=== PATIENT | male | born 1985 | race Hispanic/Latino ===

== ENCOUNTER 2019-12-29 03:01 | Emergency (ER) | payer SELFPAY ==
[~2019-12-29] VITALS: Ht 172.7 cm; Wt 111.1 kg
--- NOTE | 2019-12-29 03:37 | Emergency Department Note ---
History of Present Illnes History of Present Illness Chief Complaint: General Medicine Complaints History of Present Illness This is a 34 year old male, with history of hypothyroidism and NIDDM, who presents with a four-day history of nasal congestion, sneezing, and watery eyes. He has been taking Zyrtec, without relief of her symptoms. He denies any fever, productive cough, chest tightness or heaviness. Patient states that he awoke this morning, and felt he was unable to breathe, due to his significant nasal congestion. He did take a warm shower, which provided temporary relief. Patient states that he has had seasonal allergies in the past, but this season seems to be the worst. Historian: Patient Arrival Mode: Car Transport Pilot Required: No Onset (how long ago): day(s) (4) Location: nose Quality: congestion/stuffiness Radiation: Reports non-radiation; Denies neck Severity: severe Onset quality: gradual Duration (how long): day(s) (4) Timing of current episode: constant Progression: worsening Chronicity: new Context: Denies recent illness, Denies recent travel Relieving factors: none Exacerbating factors: none Associated symptoms: Reports denies other symptoms; Denies chest pain, Denies cough, Denies fever/chills, Denies headaches, Denies nausea/vomiting, Denies rash Treatments prior to arrival: none Past Medical/Family History Physician Review I have reviewed the patient's past medical and family history. Any updates have been documented here. Past Medical History Recent Fever: No Clinical Suspicion of Infectio: No New/Unexplained Change in Ment: No Past Medical History: Diabetes (NIDDM), Hypothyroidism Other Surgery: THYROID Social History Smoking Cessation: Never Smoker Alcohol Use: None Any Illegal Drug Use: No TB Exposure/Symptoms: No Physically hurt or threatened: No Family History Family history of heart diseas: No Other Last Tetanus: unsure Any Pre-Existing Lines (PICC,: No Is patient up to date on immun: No Review of Systems Review of Systems Constitutional: Denies chills, Denies fever EENTM: Reports no symptoms, Reports nose congestion; Denies throat pain Cardiovascular: Denies chest pain, Denies palpitations Respiratory: Denies cough, Denies dyspnea Gastrointestinal: Denies nausea, Denies vomiting Genitourinary: Reports no symptoms Musculoskeletal: Denies back pain, Denies neck pain Integumentary: Denies change in color, Denies rash Neurological: Denies headache, Denies tingling Psychological: Denies anxiety, Denies depressed Review of other systems: All other systems negative Physical Exam Related Data Allergies: Coded Allergies: No Known Allergies (Unverified , 12/29/19) Vital signs reviewed: Yes Physical Exam CONSTITUTIONAL Constitutional: Present well-developed, Present well-nourished, Present obese; Absent distressed, Absent ill appearing HENT HENT: Present normocephalic, Present atraumatic, Present oropharynx clear/moist, Present nasal discharge, Present nasal congestion, Present rhinorrhea (clear); Absent nose normal (erythematous and edematous inferonasal turbinates) HENT L/R: Present left TM normal, Present right TM normal, Present left ext ear normal, Present right ext ear normal EYES Eyes: Reports PERRL; Denies conjunctivae normal (injected conjunctiva) NECK Neck: Present ROM normal, Present supple; Absent cervical adenopathy PULMONARY Pulmonary: Present effort normal, Present breath sounds normal; Absent chest tenderness CARDIOVASCULAR Cardiovascular: Present regular rhythm, Present heart sounds normal, Present capillary refill normal, Present normal rate; Absent murmur GASTROINTESTINAL GENITOURINARY SKIN Skin: Present warm, Present dry; Absent rash MUSCULOSKELETAL Musculoskeletal: Present ROM normal NEUROLOGICAL Neurological: Present alert, Present oriented x 3, Present no gross motor or sensory deficits PSYCHOLOGICAL Psychological: Present mood/affect normal, Present judgement normal Assessment & Plan Medical Decision Making MDM r - Use the Afrin Nasal [place] - 2 sprays each nostril every 12 hours for the next 3 days, as needed. - After using the Afrin [place]--> Use Saline Nasal [place], such as "[place]" to irrigate both nostrils,--> blow your nose and then use the NASACORT or FLONASE Nasal [place] - 2 sprays each nostril twice daily x 3 days. - After 3 days, STOP the Afrin and use the NASACORT OR FLONASE - 2 sprays each nostril, only once daily for the next 7-10 days, if needed. - Continue the Zyrtec/Cetirizine 10 mg - 1 tab daily, for the next 10 - 14 days, to help with allergy symptoms. - Try and avoid being outside in the watch technician and at dusk, as this is when the allergens in the enviroment are at the highest. - You may take Advil 200 mg - 3 tabs together every 6-8 hours, as needed, for pain or headache. Continue to monitor your blood sugars, as they can go up, after receiving the Decadron/steroid injection for your allergies. - Follow-up with your doctor, if symptoms worsen or persist. Assessment & Plan Final Impression: (1) Allergic rhinitis (2) Elevated blood pressure reading (3) Diabetes (4) Acquired hypothyroidism Depart Disposition: HOME, SELF-CARE SHAWN MENDEZ MD Dec 29, 2019 03:37
[2019-12-29] MEDS ORDERED: OXYMETAZOLINE HCL 0.05% NAS 1 SPRAY BTL ONE ×2 (03:41→03:45)
[2019-12-29] MEDS ORDERED: DEXAMETHASONE SOD PHOS INJ 4 MG/ML VIAL ONE (03:41)
[2019-12-29] MEDS ORDERED: DEXAMETHASONE SOD PHOS 10 MG/1 ML VIAL IM ONE (03:45)
--- OUTSIDE RECORDS SUMMARY | 2019-12-29 05:14 | XMS REPORT | Clinical Summary ---
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 Active hydroCHLOROthiazide Take 1 90 capsule 0 (MICROZIDE) 12.5 mg capsule by 6 capsuleIndications: mouth every Secondary hypertension morning. Active ibuprofen (MOTRIN) 800 mg Take 1 tablet 20 tablet 0 tabletIndications: Dental by mouth 7 impaction every 8 hours as needed for Pain. Active blood glucose meter Use as 1 Kit 0 (PRECISION XTRA directed.. 7 GLUCOMETER)Indications: Type 2 diabetes mellitus without complication, without long-term current use of insulin Active blood glucose (PRECISION Use 2 times 100 Each 3 1 XTRA TEST STRIPS) test weekly (once 7 stripsIndications: Type 2 per day on diabetes mellitus without Fri,) to complication, without test blood long-term current use of sugar. insulin Active lancets 28 Use 2 times 100 Each 1 gaugeIndications: Type 2 weekly as 7 diabetes mellitus without directed. complication, without long-term current use of insulin Active omeprazole (PRILOSEC) 20 Take 1 30 capsule 3 1 mg delayed release capsule by 7 capsuleIndications: mouth daily. Gastroesophageal reflux disease without esophagitis Active levothyroxine (SYNTHROID) Take 1 tablet 30 tablet 2 175 mcg by mouth 7 tabletIndications: daily. Hypothyroidism, unspecified type Active levothyroxine (SYNTHROID) TAKE 1 TABLET 90 tablet 1 175 mcg BY MOUTH ONCE 8 tabletIndications: DAILY Hypothyroidism, unspecified type Active Problems Problem Noted Date Elevated liver enzymes 04/05/2016 Prediabetes 04/05/2016 Panic attack as reaction to stress 04/05/2016 Post-surgical hypothyroidism 10/15/2006 Metastatic papillary carcinoma 06/04/2006 LUQ pain Immunizations Name Administration Dates Next Due Influenza Vaccine, 02/27/2017 (Deferred: Patie nt Refused) Seasonal, Injectable PPV 23 (Pneumococcal 02/27/2017 (Deferred: Patie nt Refused) Polysaccharide 23 Valent) Tdap Tetanus, diphtheria, 03/13/2016 acellular pertussis Vaccine Family History Relation Name Status Comments Brother Alive Brother Alive Brother Alive Father Alive Maternal Grandfather Alive Maternal Grandmother Alive Mother Alive Paternal Grandfather Alive Paternal Grandmother Alive Sister Alive Sister Alive Social History Date Tobacco Use Types Packs/Day Years Used Never Smoker Smokeless Tobacco: Never Used Tobacco Cessation: Counseling Given: No Drinks/Week oz/Week Comments Alcohol Use No Food Insecurity Answer Date Recorded Within the past 12 months, you worried that your Never emelia e 02/27/2017 food would run out before you got money to buy more. Within the past 12 months, the food you bought Never true 02/27/2017 just didn't last and you didn't have mo cynthia to get more. Sex Assigned at Date Recorded Not on file Industry Job Start Date Occupation Not on file Not on file Not on file Travel End Travel History Travel Start No recent travel history available. Last Filed Vital Signs Not on file Plan of Treatment Not on file Results Not on fileafter 12/28/2018
--- OUTSIDE RECORDS SUMMARY | 2019-12-29 05:14 | XMS REPORT | Continuity of Care Document ---
Author Author [facility] t Organization [facility] Address [address] [place] [address] Phone Unavailable Care Team Providers Care Network Applications Specialist Name Role Phone Unavailable Unavailable Payers Payer Name Policy Type Policy Number Effective Date Expiration Date S ource Problems Condition Name Condition Details Condition Category Status Onset Date Resolution Date Last Treatment Date Treating Clinician Comments Source Elevated liver enzymes Elevated liver enzymes Disease Active 2016-04-05 00:00:00 [facility] Prediabetes Prediabetes Disease Active 2016-04-05 00:00:00 [facility] Panic attack as reaction to stress Panic attack as reaction to s tress Disease Active 2016-04-05 00:00:00 [facility] Post-surgical hypothyroidism Post-surgical hypothyroidism Disease Active 2006-10-15 00:00:00 [facility] Metastatic papillary carcinoma Metastatic papillary carcinoma Disea se Active 2006-06-04 00:00:00 [facility] LUQ pain LUQ pain Disease Active Supr[facility] Allergies, Adverse Reactions, Alerts Allergy Name Allergy Type Status Severity Reaction(s) Onset Date Inacti ve Date Treating Clinician Comments Source No Known Allergies DA Active U 2014-08-30 00:00:00 [facility] Social History Social Habit Start Date Stop Date Quantity Comments Source Sex Assigned At [facility] Alcohol intake 2018-08-19 00:00:00 2018-08-19 00:00:00 Current non-drinker of alcohol (finding) [facility] History SDOH Food Worry 2017-02-27 00:00:00 2017-02-27 00:00:[address] [facility] History SDOH Food Scarcity 2017-02-27 00:00:00 2017-02-27 00:00:[address] [facility] Smoking Status Start Date Stop Date Source Never smoker [facility] Medications Ordered Medication Name Filled Medication Name Start Date Stop Da te Current Medication? Ordering Clinician Indication Dosage Frequency Signature (SIG) Comments Components Source levothyroxine (SYNTHROID) 175 mcg tablet 2018-01-01 00:00:00 Yes Hypothyroidism, unspecified type TAKE 1 TABLET BY MOUTH ON CE DAILY [facility] blood glucose meter (PRECISION XTRA GLUCOMETER) 2017-02-27 0 0:00:00 Yes Type 2 diabetes mellitus without complication, without long-term current use of insulin Use as directed.. [facility] blood glucose (PRECISION XTRA TEST STRIPS) test strips 2017-02-27 00:00:00 Yes Type 2 diabetes mellitus wit hout complication, without long-term current use of insulin Use 2 times weekly ( once per day on Fri,) to test blood sugar. [facility] lancets 28 gauge 2017-02-27 00:00:00 Yes Type 2 diabetes mellitus without complication, without long-term current use of insulin Use 2 times weekly as directed. [facility] omeprazole (PRILOSEC) 20 mg delayed release capsule 2016-03 00:00:00 Yes Gastroesophageal reflux disease without esophagitis 20mg QD Take 1 capsule by mouth daily. [facility] levothyroxine (SYNTHROID) 175 mcg tablet 2017-02-27 00:00:00 Yes Hypothyroidism, unspecified type 175ug QD Take 1 tablet by mouth da dylna. [facility] ibuprofen (MOTRIN) 800 mg tablet 2016-04-19 00:00:00 Yes Dental impaction 800mg Take 1 tablet by mouth every 8 hours as needed for Jp n. [facility] hydroCHLOROthiazide (MICROZIDE) 12.5 mg capsule 2016-03-13 0 0:00:00 Yes Secondary hypertension 12.5mg Take 1 capsule by mouth every morni ng. [facility] hydrOXYzine (ATARAX) 25 mg tablet 2015-03-08 00:00:00 Yes Anxiety state, unspecified 25mg Take 1 tablet by mouth 3 times d aily as needed for Anxiety. [facility] Immunizations Ordered Immunization Name Filled Immunization Name Date Status Comments Source Tdap Tetanus, diphtheria, acellular pertussis Vaccine 2016-03-13 00:00:[address] [facility] Procedures This patient has no known procedures. Encounters Start Date/Time End Date/Time Encounter Type [facility] ID Source 2016-11-05 00:00:00 2016-11-05 00:00:00 Outpatient [facility] [id number] [facility] 2016-08-10 15:54:57 2016-08-10 15:54:57 Outpatient [facility] [id number] [facility] Results Test Description Test Time Test Comments Results Result Comments Source AB INSULIN 2019-05-07 13:04:00 Test Item AB INSULIN (test code = INSULAB) 6.1 TESTS RESULTS Flag UNITS Insulin Antibodies 6.1 High uU/mL This test is also known as i nsulin autoantibody or IAA. Reference Range: <5.0 Negative > or = 5.0 Positive Test performed at: [facility] [address] [place] [id number] 11:52:00* Test Item Value Reference Range Interpretation Comments GLUBED (test code = GLUBED) 198 mg/dL 74-106 H Performed by certified water taxi operator at [facility] [id number] 16:04:00* Test Item Value Reference Range Interpretation Comments POTASSIUM (test code = K) 3.6 mmol/L 3.5-5.1 N [id number] 15:13:00* Test Item Value Reference Range Interpretation Comments GLUBED (test code = GLUBED) 141 mg/dL 74-106 H Performed by certified water taxi operator at [facility] URINE K, [id number] 12:28:00* Test Item Value Reference Range Interpretation Comments URINE K, RANDOM (test code = KU) 4.0 mmol/L 12-75 L [id number] 10:54:00* Test Item Value Reference Range Interpretation Comments GLUBED (test code = GLUBED) 287 mg/dL 74-106 H Performed by certified water taxi operator at [facility] BASIC METABOLIC [id number] 09:07:00* Test Item Value Reference Range Interpretation Comments SODIUM (test code = NA) 138 mmol/L 136-145 N POTASSIUM (test code = K) 2.8 mmol/L 3.5-5.1 Re sults called to [id number] by VPhyliciaLABSATINDER 04/08/19 0907Critical results verified and read back by Nurse? Y CHLORIDE (test code = CL) 100.0 mmol/L 98-107 N CARBON DIOXIDE (test code = CO2) 29.0 mmol/L 21-32 N ANION GAP (test code = GAP) 11.8 10-20 N GLUCOSE (test code = GLU) 171 mg/dL 74-106 H BLOOD UREA NITROGEN (test code = BUN) 3 mg/dL 7-18 L GLOMERULAR FILTRATION RATE (test code = GFR) > 60 mL/min >=60 Estimated GFR by using Modified MDRD formula.Chronic kidney disease is defined as either kidney damageor GFR <60 mL/min/1.73 m2 for >3 months. CREATININE (test code = CREAT) 0.80 mg/dL 0.7-1.3 N BUN/CREATININE RATIO (test code = BUN/CREA) 3.8 10-20 L CALCIUM (test code = CA) 9.1 mg/dL 8.5-10.1 N [id number] 09:07:00* Test Item Value Reference Range Interpretation Comments MAGNESIUM (test code = MAG) 2.1 mg/dL 1.8-2.4 N [id number] 07:33:00* Test Item Value Reference Range Interpretation Comments GLUBED (test code = GLUBED) 160 mg/dL 74-106 H Performed by certified water taxi operator at [facility] [id number] 22:05:00* Test Item Value Reference Range Interpretation Comments GLUBED (test code = GLUBED) 173 mg/dL 74-106 H Performed by certified water taxi operator at [facility] [id number] 16:22:00* Test Item Value Reference Range Interpretation Comments GLUBED (test code = GLUBED) 152 mg/dL 74-106 H Performed by certified water taxi operator at [facility] [id number] 16:20:00* Test Item Value Reference Range Interpretation Comments POTASSIUM (test code = K) 3.1 mmol/L 3.5-5.1 L [id number] 14:19:00* Test Item Value Reference Range Interpretation Comments POTASSIUM (test code = K) 2.9 mmol/L 3.5-5.1 L Re ortiz called to DON PATELC3fay V.LAB.OA 04/07/19 1418Critical results verified and read back by Nurse? Y [id number] 12:11:00* Test Item Value Reference Range Interpretation Comments GLUBED (test code = GLUBED) 207 mg/dL 74-106 H Performed by certified water taxi operator at [facility] [id number] 11:36:00* Test Item Value Reference Range Interpretation Comments GLUBED (test code = GLUBED) 141 mg/dL 74-106 H Performed by certified water taxi operator at [facility] BASIC METABOLIC [id number] 09:13:00* Test Item Value Reference Range Interpretation Comments SODIUM (test code = NA) 138 mmol/L 136-145 N POTASSIUM (test code = K) 2.6 mmol/L 3.5-5.1 LL Re ortiz called to [id number] by V.LAB.[facility] 04/07/19 0909Critical results verified and read back by Nurse? Y CHLORIDE (test code = CL) 101.0 mmol/L 98-107 N CARBON DIOXIDE (test code = CO2) 26.0 mmol/L 21-32 N ANION GAP (test code = GAP) 13.6 10-20 N GLUCOSE (test code = GLU) 151 mg/dL 74-106 H BLOOD UREA NITROGEN (test code = BUN) 2 mg/dL 7-18 L GLOMERULAR FILTRATION RATE (test code = GFR) > 60 mL/min >=60 Estimated GFR by using Modified MDRD formula.Chronic kidney disease is defined as either kidney damageor GFR <60 mL/min/1.73 m2 for >3 months. CREATININE (test code = CREAT) 0.80 mg/dL 0.7-1.3 N BUN/CREATININE RATIO (test code = BUN/CREA) 2.5 10-20 L CALCIUM (test code = CA) 8.9 mg/dL 8.5-10.1 N [id number] 09:13:00* Test Item Value Reference Range Interpretation Comments MAGNESIUM (test code = MAG) 1.9 mg/dL 1.8-2.4 N [id number] 20:36:00* Test Item Value Reference Range Interpretation Comments GLUBED (test code = GLUBED) 232 mg/dL 74-106 H Performed by certified water taxi operator at [facility] [id number] 16:45:00* Test Item Value Reference Range Interpretation Comments MAGNESIUM (test code = MAG) 1.8 mg/dL 1.8-2.4 N [id number] 16:39:00* Test Item Value Reference Range Interpretation Comments GLUBED (test code = GLUBED) 213 mg/dL 74-106 H Performed by certified water taxi operator at [facility] [id number] 15:56:00* Test Item Value Reference Range Interpretation Comments POTASSIUM (test code = K) 2.7 mmol/L 3.5-5.1 LL Re sults called to [id number] by V.LAB.SPR 04/06/19 1556Critical results verified and read back by Nurse? Y [id number] 15:40:00* Test Item Value Reference Range Interpretation Comments GLUBED (test code = GLUBED) 230 mg/dL 74-106 H Performed by certified water taxi operator at [facility] [id number] 07:44:00* Test Item Value Reference Range Interpretation Comments GLUBED (test code = GLUBED) 230 mg/dL 74-106 H Performed by certified water taxi operator at [facility] [id number] 06:52:00* Test Item Value Reference Range Interpretation Comments GLUBED (test code = GLUBED) 231 mg/dL 74-106 H Performed by certified water taxi operator at [facility] BASIC METABOLIC [id number] 04:23:00* Test Item Value Reference Range Interpretation Comments SODIUM (test code = NA) 138 mmol/L 136-145 N POTASSIUM (test code = K) 2.8 mmol/L 3.5-5.1 LL Re sults called to [id number] by V.LAB.KN2 04/06/19 0422Critical results verified and read back by Nurse? Y CHLORIDE (test code = CL) 106.0 mmol/L 98-107 N CARBON DIOXIDE (test code = CO2) 21.0 mmol/L 21-32 N ANION GAP (test code = GAP) 13.8 10-20 N GLUCOSE (test code = GLU) 179 mg/dL 74-106 H BLOOD UREA NITROGEN (test code = BUN) 4 mg/dL 7-18 L GLOMERULAR FILTRATION RATE (test code = GFR) > 60 mL/min >=60 Estimated GFR by using Modified MDRD formula.Chronic kidney disease is defined as either kidney damageor GFR <60 mL/min/1.73 m2 for >3 months. CREATININE (test code = CREAT) 0.90 mg/dL 0.7-1.3 N BUN/CREATININE RATIO (test code = BUN/CREA) 4.4 10-20 L CALCIUM (test code = CA) 8.8 mg/dL 8.5-10.1 N [id number] 04:23:00* Test Item Value Reference Range Interpretation Comments PHOSPHORUS (test code = PHOS) 2.0 mg/dL 2.5-4.9 L [id number] 04:23:00* Test Item Value Reference Range Interpretation Comments MAGNESIUM (test code = MAG) 1.9 mg/dL 1.8-2.4 N CBC W/AUTO [id number] 01:00:00* Test Item Value Reference Range Interpretation Comments WHITE BLOOD CELL (test code = WBC) 5.4 K/mm3 4.5-12.5 N RED BLOOD CELL (test code = RBC) 4.51 mill/mm3 4.0-5.8 N HEMOGLOBIN (test code = HGB) 13.9 gram/dL 13.0-17.5 N HEMATOCRIT (test code = HCT) 39.1 % 42.0-52.0 L MEAN CELL VOLUME (test code = MCV) 86.7 fL 80-98 N MEAN CELL HGB (test code = MCH) 30.8 picogram 27.0-33.0 N MEAN CELL HGB CONCETRATION (test code = MCHC) 35.5 gram/dL 33.0-36. 0 N RED CELL DISTRIBUTION WIDTH (test code = RDW) 14.1 % 11.6-16. 2 N RED CELL DISTRIBUTION WIDTH SD (test code = RDW-SD) 44.5 fL 37 .0-51.0 N PLATELET COUNT (test code = PLT) 155 K/mm3 150-450 N MEAN PLATELET VOLUME (test code = MPV) 12.4 fL 6.7-11.0 H NEUTROPHIL % (test code = NT%) 47.0 % 39.0-69.0 N IMMATURE GRANULOCYTE % (test code = IG%) 0.4 % 0.0-5.0 N LYMPHOCYTE % (test code = LY%) 39.7 % 25.0-55.0 N MONOCYTE % (test code = MO%) 9.9 % 0.0-10.0 N EOSINOPHIL % (test code = EO%) 1.9 % 0.0-5.0 N BASOPHIL % (test code = BA%) 1.1 % 0.0-1.0 H NUCLEATED RBC % (test code = NRBC%) 0.0 % 0-0 N NEUTROPHIL # (test code = NT#) 2.53 K/mm3 1.8-7.7 N IMMATURE GRANULOCYTE # (test code = IG#) 0.02 x10 3/uL 0-0.03 N LYMPHOCYTE # (test code = LY#) 2.13 K/mm3 1.0-5.0 N MONOCYTE # (test code = MO#) 0.53 K/mm3 0-0.8 N EOSINOPHIL # (test code = EO#) 0.10 K/mm3 0.0-0.5 N BASOPHIL # (test code = BA#) 0.06 K/mm3 0.0-0.2 N NUCLEATED RBC # (test code = NRBC#) 0.00 K/mm3 0.0-0.1 N BASIC METABOLIC [id number] 21:39:00* Test Item Value Reference Range Interpretation Comments SODIUM (test code = NA) 138 mmol/L 136-145 N POTASSIUM (test code = K) 3.2 mmol/L 3.5-5.1 L CHLORIDE (test code = CL) 108.0 mmol/L 98-107 H CARBON DIOXIDE (test code = CO2) 20.0 mmol/L 21-32 L ANION GAP (test code = GAP) 13.2 10-20 N GLUCOSE (test code = GLU) 215 mg/dL 74-106 H BLOOD UREA NITROGEN (test code = BUN) 5 mg/dL 7-18 L GLOMERULAR FILTRATION RATE (test code = GFR) > 60 mL/min >=60 Estimated GFR by using Modified MDRD formula.Chronic kidney disease is defined as either kidney damageor GFR <60 mL/min/1.73 m2 for >3 months. CREATININE (test code = CREAT) 1.00 mg/dL 0.7-1.3 N BUN/CREATININE RATIO (test code = BUN/CREA) 5.0 10-20 L CALCIUM (test code = CA) 8.2 mg/dL 8.5-10.1 L BASIC METABOLIC [id number] 21:37:00* Test Item Value Reference Range Interpretation Comments SODIUM (test code = NA) 138 mmol/L 136-145 N POTASSIUM (test code = K) 3.2 mmol/L 3.5-5.1 L CHLORIDE (test code = CL) 108.0 mmol/L 98-107 H CARBON DIOXIDE (test code = CO2) mmol/L 21-32 ANION GAP (test code = GAP) 10-20 GLUCOSE (test code = GLU) mg/dL 74-106 BLOOD UREA NITROGEN (test code = BUN) mg/dL 7-18 GLOMERULAR FILTRATION RATE (test code = GFR) mL/min >=60 CREATININE (test code = CREAT) mg/dL 0.7-1.3 BUN/CREATININE RATIO (test code = BUN/CREA) 10-20 CALCIUM (test code = CA) mg/dL 8.5-10.1 [id number] 21:06:00* Test Item Value Reference Range Interpretation Comments GLUBED (test code = GLUBED) 211 mg/dL 74-106 H Performed by certified water taxi operator at [facility] [id number] 18:40:00* Test Item Value Reference Range Interpretation Comments GLUBED (test code = GLUBED) 275 mg/dL 74-106 H Performed by certified water taxi operator at [facility] [id number] 17:24:00* Test Item Value Reference Range Interpretation Comments GLUBED (test code = GLUBED) 272 mg/dL 74-106 H Performed by certified water taxi operator at [facility] BASIC METABOLIC [id number] 17:16:00* Test Item Value Reference Range Interpretation Comments SODIUM (test code = NA) 137 mmol/L 136-145 RESU LT VERIFIED BY REPEAT ANALYSIS POTASSIUM (test code = K) 2.8 mmol/L 3.5-5.1 Re sults called to [id number] by V.LAB.SPR 04/05/19 1716Critical results verified and read back by Nurse? Y CHLORIDE (test code = CL) 107.0 mmol/L 98-107 N CARBON DIOXIDE (test code = CO2) 21.0 mmol/L 21-32 N ANION GAP (test code = GAP) 11.8 10-20 N GLUCOSE (test code = GLU) 290 mg/dL 74-106 H BLOOD UREA NITROGEN (test code = BUN) 5 mg/dL 7-18 L GLOMERULAR FILTRATION RATE (test code = GFR) > 60 mL/min >=60 Estimated GFR by using Modified MDRD formula.Chronic kidney disease is defined as either kidney damageor GFR <60 mL/min/1.73 m2 for >3 months. CREATININE (test code = CREAT) 1.10 mg/dL 0.7-1.3 N BUN/CREATININE RATIO (test code = BUN/CREA) 4.5 10-20 L CALCIUM (test code = CA) 8.2 mg/dL 8.5-10.1 L [id number] 15:35:00* Test Item Value Reference Range Interpretation Comments GLUBED (test code = GLUBED) 227 mg/dL 74-106 H Performed by certified water taxi operator at [facility] [id number] 14:41:00* Test Item Value Reference Range Interpretation Comments GLUBED (test code = GLUBED) 164 mg/dL 74-106 H Performed by certified water taxi operator at [facility] [id number] 13:53:00* Test Item Value Reference Range Interpretation Comments GLUBED (test code = GLUBED) 140 mg/dL 74-106 H Performed by certified water taxi operator at [facility] [id number] 13:53:00* Test Item Value Reference Range Interpretation Comments GLUBED (test code = GLUBED) 176 mg/dL 74-106 H Performed by certified water taxi operator at [facility] [id number] 13:53:00* Test Item Value Reference Range Interpretation Comments GLUBED (test code = GLUBED) 154 mg/dL 74-106 H Performed by certified water taxi operator at [facility] T4 [id number] 13:44:00* Test Item Value Reference Range Interpretation Comments T4 FREE (test code = T4F) 1.02 ng/dL 0.76-1.46 N THYROID STIMULATING [id number] 13:44:00* Test Item Value Reference Range Interpretation Comments THYROID STIMULATING HORMONE (test code = TSH) 5.710 uIU/mL 0.36-3.7 4 H TSH REFERENCE RANGES: EUTHYROID: 0.35 - 4.3 mIU/mL HYPO : > 5.5 mIU/mL HYPER : < 0.35 mIU/mL BASIC METABOLIC [id number] 12:46:00* Test Item Value Reference Range Interpretation Comments SODIUM (test code = NA) 142 mmol/L 136-145 N POTASSIUM (test code = K) 2.7 mmol/L 3.5-5.1 LL Re sults called to [id number] by RIDDHI 04/05/19 1246Critical results verified and read back by Nurse? Y CHLORIDE (test code = CL) 112.0 mmol/L 98-107 H CARBON DIOXIDE (test code = CO2) 19.0 mmol/L 21-32 L ANION GAP (test code = GAP) 13.7 10-20 N GLUCOSE (test code = GLU) 180 mg/dL 74-106 H BLOOD UREA NITROGEN (test code = BUN) 6 mg/dL 7-18 L GLOMERULAR FILTRATION RATE (test code = GFR) > 60 mL/min >=60 Estimated GFR by using Modified MDRD formula.Chronic kidney disease is defined as either kidney damageor GFR <60 mL/min/1.73 m2 for >3 months. CREATININE (test code = CREAT) 1.20 mg/dL 0.7-1.3 N BUN/CREATININE RATIO (test code = BUN/CREA) 5.0 10-20 L CALCIUM (test code = CA) 8.6 mg/dL 8.5-10.1 N THYROID PROFILE [id number] 12:46:00* Test Item Value Reference Range Interpretation Comments T3 UPTAKE (test code = T3UP) 38.0 % 30.0-40.0 N T4 (THYROXINE) (test code = T4) 6.1 ug/dL 4.5-13.9 N T7 (FREE THYROXINE INDEX) (test code = T7) 2.31 FTI 1.3-5.1 N THYROID STIMULATING HORMONE (test code = TSH) 5.460 uIU/mL 0.36-3.7 4 H TSH REFERENCE RANGES: EUTHYROID: 0.35 - 4.3 mIU/mL HYPO : > 5.5 mIU/mL HYPER : < 0.35 mIU/mL [id number] 12:41:00* Test Item Value Reference Range Interpretation Comments GLYCOSYLATED HEMOGLOBIN (HA1C) (test code = GLYHGB) 13.2 % HbA1 SUGGESTED DIAGNOSIS: HbA1C (%) Diabetic >6.4Prediabetes 5.7 - 6.4Normal <5.7 ESTIMATED AVERAGE GLUCOSE (test code = EAG) 332 MG/DL [id number] 11:52:00* Test Item Value Reference Range Interpretation Comments GLUBED (test code = GLUBED) 157 mg/dL 74-106 H Performed by certified water taxi operator at [facility] VENOUS BLOOD [id number] 10:36:00* Test Item Value Reference Range Interpretation Comments VENOUS BLOOD GAS PH (test code = PHV) 7.27 7.30-7.40 L VENOUS BLOOD GAS PCO2 (test code = PCO2V) 38.7 mm Hg 39.0-51.0 L VENOUS BLOOD GAS PO2 (test code = PO2V) < 43.2 mm Hg 30.0-50.0 N VBG HCO3 (test code = HCO3V) 17.5 mmol/L 17.0-30.0 N VBG BASE EXCESS (test code = YUMI) -8.7 mmol/L -5.0-5.0 LL Results called to and read back by Dr jacome 10:35 - 04/05/2019; by [id number] VENOUS BLOOD GAS O2 SAT. (test code = O2SATV) 75 % 94-98 LL VENOUS BLOOD GAS FIO2 (test code = FIO2V) 21.0 PT. HGB (test code = PHGBVBG) 14.7 gram/dL 13.0-17.5 N VENOUS BLOOD GAS SITE (test code = SITEV) IVC HEMATOCRIT (test code = HCT/VBG) 43 % 42-52 N HGB O2 SAT (test code = HBOSAT) 73.9 % 94.00-98.00 LL CARBOXYHEMOGLOBIN (test code = HOHGBT) 0.9 %totalHg 0.5-1.5 N METHEMOGLOBIN (test code = METHGB) 0.5 % 0.0-1.50 N [id number] 10:35:00* Test Item Value Reference Range Interpretation Comments GLUBED (test code = GLUBED) 165 mg/dL 74-106 H Performed by certified water taxi operator at [facility] [id number] 10:35:00* Test Item Value Reference Range Interpretation Comments GLUBED (test code = GLUBED) 176 mg/dL 74-106 H Performed by certified water taxi operator at [facility] BASIC METABOLIC [id number] 09:06:00* Test Item Value Reference Range Interpretation Comments SODIUM (test code = NA) 142 mmol/L 136-145 N POTASSIUM (test code = K) 3.2 mmol/L 3.5-5.1 L CHLORIDE (test code = CL) 113.0 mmol/L 98-107 H CARBON DIOXIDE (test code = CO2) 18.0 mmol/L 21-32 L ANION GAP (test code = GAP) 14.2 10-20 N GLUCOSE (test code = GLU) 159 mg/dL 74-106 H BLOOD UREA NITROGEN (test code = BUN) 5 mg/dL 7-18 L GLOMERULAR FILTRATION RATE (test code = GFR) > 60 mL/min >=60 Estimated GFR by using Modified MDRD formula.Chronic kidney disease is defined as either kidney damageor GFR <60 mL/min/1.73 m2 for >3 months. CREATININE (test code = CREAT) 1.30 mg/dL 0.7-1.3 N BUN/CREATININE RATIO (test code = BUN/CREA) 3.8 10-20 L CALCIUM (test code = CA) 8.6 mg/dL 8.5-10.1 N SPECIMEN COMMENTS: Q4H while on insulin [id number] 08:35:00* Test Item Value Reference Range Interpretation Comments GLUBED (test code = GLUBED) 150 mg/dL 74-106 H Performed by certified water taxi operator at [facility] [id number] 06:45:00* Test Item Value Reference Range Interpretation Comments GLUBED (test code = GLUBED) 138 mg/dL 74-106 H Performed by certified water taxi operator at [facility] [id number] 05:45:00* Test Item Value Reference Range Interpretation Comments GLUBED (test code = GLUBED) 154 mg/dL 74-106 H Performed by certified water taxi operator at [facility] [id number] 04:36:00* Test Item Value Reference Range Interpretation Comments GLUBED (test code = GLUBED) 214 mg/dL 74-106 H Performed by certified water taxi operator at [facility] [id number] 04:08:00* Test Item Value Reference Range Interpretation Comments MAGNESIUM (test code = MAG) 2.2 mg/dL 1.8-2.4 N SPECIMEN COMMENTS: Q8H while on insulin dripBASIC METABOLIC [id number] 04:08:00* Test Item Value Reference Range Interpretation Comments SODIUM (test code = NA) 141 mmol/L 136-145 N POTASSIUM (test code = K) 3.0 mmol/L 3.5-5.1 L CHLORIDE (test code = CL) 113.0 mmol/L 98-107 H CARBON DIOXIDE (test code = CO2) 12.0 mmol/L 21-32 L ANION GAP (test code = GAP) 19.0 10-20 N GLUCOSE (test code = GLU) 241 mg/dL 74-106 H BLOOD UREA NITROGEN (test code = BUN) 6 mg/dL 7-18 L GLOMERULAR FILTRATION RATE (test code = GFR) > 60 mL/min >=60 Estimated GFR by using Modified MDRD formula.Chronic kidney disease is defined as either kidney damageor GFR <60 mL/min/1.73 m2 for >3 months. CREATININE (test code = CREAT) 1.20 mg/dL 0.7-1.3 N BUN/CREATININE RATIO (test code = BUN/CREA) 5.0 10-20 L CALCIUM (test code = CA) 8.1 mg/dL 8.5-10.1 L SPECIMEN COMMENTS: Q4H while on insulin [id number] 03:42:00* Test Item Value Reference Range Interpretation Comments GLUBED (test code = GLUBED) 191 mg/dL 74-106 H Performed by certified water taxi operator at [facility] [id number] 02:46:00* Test Item Value Reference Range Interpretation Comments GLUBED (test code = GLUBED) 265 mg/dL 74-106 H Performed by certified water taxi operator at [facility] [id number] 01:42:00* Test Item Value Reference Range Interpretation Comments GLUBED (test code = GLUBED) 259 mg/dL 74-106 H Performed by certified water taxi operator at [facility] BASIC METABOLIC [id number] 01:15:00* Test Item Value Reference Range Interpretation Comments SODIUM (test code = NA) 141 mmol/L 136-145 RESU LT VERIFIED BY REPEAT ANALYSIS POTASSIUM (test code = K) 3.5 mmol/L 3.5-5.1 N CHLORIDE (test code = CL) 111.0 mmol/L 98-107 H CARBON DIOXIDE (test code = CO2) 12.0 mmol/L 21-32 L ANION GAP (test code = GAP) 21.5 10-20 H GLUCOSE (test code = GLU) 324 mg/dL 74-106 H BLOOD UREA NITROGEN (test code = BUN) 7 mg/dL 7-18 N GLOMERULAR FILTRATION RATE (test code = GFR) > 60 mL/min >=60 Estimated GFR by using Modified MDRD formula.Chronic kidney disease is defined as either kidney damageor GFR <60 mL/min/1.73 m2 for >3 months. CREATININE (test code = CREAT) 1.20 mg/dL 0.7-1.3 N BUN/CREATININE RATIO (test code = BUN/CREA) 5.8 10-20 L CALCIUM (test code = CA) 8.3 mg/dL 8.5-10.1 L [id number] 01:15:00* Test Item Value Reference Range Interpretation Comments PHOSPHORUS (test code = PHOS) 1.1 mg/dL 2.5-4.9 L [id number] 01:15:00* Test Item Value Reference Range Interpretation Comments MAGNESIUM (test code = MAG) 2.1 mg/dL 1.8-2.4 N CALCIUM [id number] 01:15:00* Test Item Value Reference Range Interpretation Comments CALCIUM IONIZED (test code = ANNA) 1.34 mmol/L 1.12-1.32 H CBC W/AUTO [id number] 01:14:00* Test Item Value Reference Range Interpretation Comments WHITE BLOOD CELL (test code = WBC) 7.2 K/mm3 4.5-12.5 N RED BLOOD CELL (test code = RBC) 4.93 mill/mm3 4.0-5.8 N HEMOGLOBIN (test code = HGB) 15.4 gram/dL 13.0-17.5 N HEMATOCRIT (test code = HCT) 43.8 % 42.0-52.0 N MEAN CELL VOLUME (test code = MCV) 88.8 fL 80-98 N MEAN CELL HGB (test code = MCH) 31.2 picogram 27.0-33.0 N MEAN CELL HGB CONCETRATION (test code = MCHC) 35.2 gram/dL 33.0-36. 0 N RED CELL DISTRIBUTION WIDTH (test code = RDW) 14.4 % 11.6-16. 2 N RED CELL DISTRIBUTION WIDTH SD (test code = RDW-SD) 46.2 fL 37 .0-51.0 N PLATELET COUNT (test code = PLT) 185 K/mm3 150-450 N MEAN PLATELET VOLUME (test code = MPV) 12.4 fL 6.7-11.0 H NEUTROPHIL % (test code = NT%) 57.1 % 39.0-69.0 N IMMATURE GRANULOCYTE % (test code = IG%) 0.4 % 0.0-5.0 N LYMPHOCYTE % (test code = LY%) 31.2 % 25.0-55.0 N MONOCYTE % (test code = MO%) 10.3 % 0.0-10.0 H EOSINOPHIL % (test code = EO%) 0.3 % 0.0-5.0 N BASOPHIL % (test code = BA%) 0.7 % 0.0-1.0 N NUCLEATED RBC % (test code = NRBC%) 0.0 % 0-0 N NEUTROPHIL # (test code = NT#) 4.08 K/mm3 1.8-7.7 N IMMATURE GRANULOCYTE # (test code = IG#) 0.03 x10 3/uL 0-0.03 N LYMPHOCYTE # (test code = LY#) 2.23 K/mm3 1.0-5.0 N MONOCYTE # (test code = MO#) 0.74 K/mm3 0-0.8 N EOSINOPHIL # (test code = EO#) 0.02 K/mm3 0.0-0.5 N BASOPHIL # (test code = BA#) 0.05 K/mm3 0.0-0.2 N NUCLEATED RBC # (test code = NRBC#) 0.00 K/mm3 0.0-0.1 N BASIC METABOLIC [id number] 00:55:00* Test Item Value Reference Range Interpretation Comments SODIUM (test code = NA) mmol/L 136-145 POTASSIUM (test code = K) mmol/L 3.5-5.1 CHLORIDE (test code = CL) mmol/L 98-107 CARBON DIOXIDE (test code = CO2) mmol/L 21-32 ANION GAP (test code = GAP) 10-20 GLUCOSE (test code = GLU) mg/dL 74-106 BLOOD UREA NITROGEN (test code = BUN) mg/dL 7-18 GLOMERULAR FILTRATION RATE (test code = GFR) mL/min >=60 CREATININE (test code = CREAT) mg/dL 0.7-1.3 BUN/CREATININE RATIO (test code = BUN/CREA) 10-20 CALCIUM (test code = CA) mg/dL 8.5-10.1 [id number] 00:55:00* Test Item Value Reference Range Interpretation Comments PHOSPHORUS (test code = PHOS) mg/dL 2.5-4.9 [id number] 00:55:00* Test Item Value Reference Range Interpretation Comments MAGNESIUM (test code = MAG) mg/dL 1.8-2.4 CALCIUM [id number] 00:55:00* Test Item Value Reference Range Interpretation Comments CALCIUM IONIZED (test code = ANNA) 1.34 mmol/L 1.12-1.32 H [id number] 00:41:00* Test Item Value Reference Range Interpretation Comments GLUBED (test code = GLUBED) 284 mg/dL 74-106 H Performed by certified water taxi operator at [facility] ARTERIAL BLOOD [id number] 22:39:00* Test Item Value Reference Range Interpretation Comments ARTERIAL BLOOD GAS PH (test code = PHA) 7.24 7.35-7.45 L ARTERIAL BLOOD GAS PCO2 (test code = PCO2A) 17.5 mm Hg 35-45 LL Results called to and read back by Malika 22:39 - 04/04/2019; by Mary Lozano RRT ARTERIAL BLOOD GAS PO2 (test code = PO2A) 176.4 mmHg 80-100 H BICARBONATE TOTAL HCO3 (test code = HCO3) 7.2 mmol/L 23.0-27.0 LL Results called to and read back by Malika :39 - 04/04/2019; by Mary Lozano RRT BASE EXCESS (test code = BHARTI) -17.6 mmol/L -3.0-5.0 LL Results called to and read back by Malika :39 - 04/04/2019; by Mary Lozano BLEACH CHLORINATOR ABG O2 SATURATION (test code = SATA) 98.9 % 90.0-98.0 H ABG TYPE (test code = TYPEA) Arterial FIO2 (test code = FIO2A) 21.0 ABG SITE (test code = SITEA) Lt RADIAL ARTERY abg received from [facility] MODIFIED ALLENS (test code = MODALL) Yes CHECK PERFORMED HEMATOCRIT (test code = HCT/ABG) 46 % 42-52 N TOTAL HGB (test code = THB) 15.5 gram/dL 13.0-17.5 N HGB O2 SAT (test code = HBOSAT) 98.5 % 94.00-98.00 H CARBOXYHEMOGLOBIN (test code = HOHGBT) 0.1 %totalHg 0.5-1.5 LL Results called to and read back by Malika :39 - 04/04/2019; by Mary Lozano BLEACH CHLORINATOR METHEMOGLOBIN (test code = METHGB) 0.3 % 0.0-1.50 N O2 CONTENT (test code = O2CT) 21.8 % vol 18.0-22.0 N [id number] 22:31:00* Test Item Value Reference Range Interpretation Comments GLUBED (test code = GLUBED) 358 mg/dL 74-106 H Performed by certified water taxi operator at [facility] [id number] 21:31:00* Test Item Value Reference Range Interpretation Comments GLUBED (test code = GLUBED) 465 mg/dL 74-106 H Performed by certified water taxi operator at [facility] - XR CHEST 1 [id number] 21:10:00 Name: LISA WILKINS [facility] : 1985 Age/S:33 /M [address] [facility] Unit#:[id number] Loc: [place] [address] Phys: George Swann MD Dis Date: PHONE #: [phone] Status: REG ER FAX #: [phone] Exam Date: 04/04/2019 Reason: CHEST PAIN EXAMS: CPT CODE: [id number] XR CHEST 1 V [id number] REASON FOR EXAM: CHEST PAIN Exam Order Date: 04/04/2019 8:02 PM Ordering M.D.: George Swann MD PROCEDURE: - XR CHEST 1 V COMPARISON: None FINDINGS: The lungs are clear. There is no pleural effusion or pneumothorax. Pulmonary vascularity is within normal limits. Cardiomediastinal silhouette is normal in size for technique. The mediastinal contours are within normal limits. Musculoskeletal structures are within normal limits. The visualized upper abdomen is within normal limits. IMPRESSION: No acute cardiopulmonary process. Location: [facility] Signed by Ronald Anderson MD on 04/04/2019 at 0 Rep orted and signed by: Ronald Anderson MD CC: George Swann MD Technologist: ZIA MULTANI RT(R),CT Trnscrpt Data: 04/04/2019 (2109) t.SDR.RR31 Orig Print D/T: S: 04/04/2019 (2113) PAGE 1 Signed Report URINALYSIS COMPLETE 2019-04-04 21:05:00* Test Item Value Reference Range Interpretation Comments UA COLOR (test code = COLU) COLORLESS YELLOW A UA APPEARANCE (test code = APPU) CLEAR CLEAR UA GLUCOSE DIPSTICK (test code = DGLUU) 1000 (3+) mg/dL NEGATIVE A UA BILIRUBIN DIPSTICK (test code = BILU) NEGATIVE mg/dL NEGATIVE UA KETONE DIPSTICK (test code = KETU) 150 (4+) mg/dL NEGATIVE A UA SPECIFIC GRAVITY (test code = SGU) 1.020 1.001-1.035 UA BLOOD DIPSTICK (test code = MARY) 25 (1+) Arnulfo/uL NEGATIVE A UA PH DIPSTICK (test code = GABRIELLE) 5.0 5.0-8.0 UA PROTEIN DIPSTICK (test code = PROU) 30 (1+) mg/dL Neg-15 A UA UROBILINIOGEN DIPSTICK (test code = URO) norm mg/dL 0.0-0.2 UA NITRITE DIPSTICK (test code = IVORY) NEGATIVE NEGATIVE UA LEUKOCYTE ESTERASE DIPSTICK (test code = LEUU) 100 Madelyn/uL (1+) u L NEGATIVE A UA WBC (test code = WBCU) 3-5 per HPF 0-5 UA RBC (test code = RBCU) 3-5 per HPF 0-5 UA EPITHELIAL CELLS (test code = EPIU) Rare (0-1/hpf) per HPF Few UA BACTERIA (test code = BACU) FEW per HPF NONE UA YEAST (test code = YEASTU) FEW per HPF NONE A Urine Source? Clean CatchDRUGS OF ABUSE SCREEN [id number] 21:05:00* Test Item Value Reference Range Interpretation Comments URN COCAINE (test code = COCAURN) NEGATIVE NEGATIVE URN CANNABINOIDS (test code = CANNABURN) NEGATIVE NEGATIVE URN AMPHETAMINE (test code = AMPHETURN) NEGATIVE NEGATIVE URN BARBITURATE (test code = BARBITURN) NEGATIVE NEGATIVE URN BENZODIAZEPINE (test code = BENZOURN) NEGATIVE NEGATIVE URN OPIATES (test code = OPIATURN) NEGATIVE NEGATIVE URN PHENCYCLIDINE (PCP) (test code = PHENCURN) NEGATIVE NEGATIV E Urine Source? Clean CatchURINALYSIS [id number] 21:01:00* Test Item Value Reference Range Interpretation Comments UA COLOR (test code = COLU) COLORLESS YELLOW A UA APPEARANCE (test code = APPU) CLEAR CLEAR UA GLUCOSE DIPSTICK (test code = DGLUU) 1000 (3+) mg/dL NEGATIVE A UA BILIRUBIN DIPSTICK (test code = BILU) NEGATIVE mg/dL NEGATIVE UA KETONE DIPSTICK (test code = KETU) 150 (4+) mg/dL NEGATIVE A UA SPECIFIC GRAVITY (test code = SGU) 1.020 1.001-1.035 UA BLOOD DIPSTICK (test code = MARY) 25 (1+) Arnulfo/uL NEGATIVE A UA PH DIPSTICK (test code = GABRIELLE) 5.0 5.0-8.0 UA PROTEIN DIPSTICK (test code = PROU) 30 (1+) mg/dL Neg-15 A UA UROBILINIOGEN DIPSTICK (test code = URO) norm mg/dL 0.0-0.2 UA NITRITE DIPSTICK (test code = IVORY) NEGATIVE NEGATIVE UA LEUKOCYTE ESTERASE DIPSTICK (test code = LEUU) 100 Madelyn/uL (1+) u L NEGATIVE A UA WBC (test code = WBCU) 3-5 per HPF 0-5 UA RBC (test code = RBCU) 3-5 per HPF 0-5 UA EPITHELIAL CELLS (test code = EPIU) Rare (0-1/hpf) per HPF Few UA BACTERIA (test code = BACU) FEW per HPF NONE UA YEAST (test code = YEASTU) FEW per HPF NONE A Urine Source? Clean CatchDRUGS OF ABUSE SCREEN [id number] 21:01:00* Test Item Value Reference Range Interpretation Comments URN COCAINE (test code = COCAURN) NEGATIVE URN CANNABINOIDS (test code = CANNABURN) NEGATIVE URN AMPHETAMINE (test code = AMPHETURN) NEGATIVE URN BARBITURATE (test code = BARBITURN) NEGATIVE URN BENZODIAZEPINE (test code = BENZOURN) NEGATIVE URN OPIATES (test code = OPIATURN) NEGATIVE URN PHENCYCLIDINE (PCP) (test code = PHENCURN) NEGATIV E Urine Source? Clean CatchLACTIC [id number] 21:00:00* Test Item Value Reference Range Interpretation Comments LACTIC ACID (test code = LACT) 1.3 MMOL/L 0.4-1.9 N ACETONE [id number] 20:56:00* Test Item Value Reference Range Interpretation Comments ACETONE BLOOD (test code = ACETB) MODERATE(30-40mg/dL) NEGATIVE TSH REFLEX TO [id number] 20:48:00* Test Item Value Reference Range Interpretation Comments TSH REFLEX TO FT4 (test code = TSHREFLEX) 3.1 0.4-5.5 N BASIC METABOLIC [id number] 20:45:00* Test Item Value Reference Range Interpretation Comments SODIUM (test code = NA) 130 mmol/L 136-145 L POTASSIUM (test code = K) 3.1 mmol/L 3.5-5.1 L CHLORIDE (test code = CL) 93 mmol/L 101-109 L CARBON DIOXIDE (test code = CO2) 11.1 mmol/L 21-32 L ANION GAP (test code = GAP) 29 mmol/L 10-20 H GLUCOSE (test code = GLU) 612 mg/dL 74-106 HH Re sults called to [id number] by [facility].CB1 04/04/19 2044Critical results verified and read back by Nurse? Y BLOOD UREA NITROGEN (test code = BUN) 8 mg/dL 3-21 N GLOMERULAR FILTRATION RATE (test code = GFR) 51 mL/min >=60 Estimated GFR by using Modified MDRD formula.Chronic kidney disease is defined as either kidney damageor GFR <60 mL/min/1.73 m2 for >3 months. CREATININE (test code = CREAT) 1.60 mg/dL 0.55-1.3 H BUN/CREATININE RATIO (test code = BUN/CREA) 5.0 10-20 L CALCIUM (test code = CA) 9.1 mg/dL 8.4-10.2 N [id number] 20:45:00* Test Item Value Reference Range Interpretation Comments MAGNESIUM (test code = MAG) 2.1 mg/dL 1.6-2.3 N [id number] 20:45:00* Test Item Value Reference Range Interpretation Comments TROPONIN-I (test code = TROPI) <0.015 ng/mL 0.00-0.056 N B-TYPE NATRIURETIC [id number] 20:44:00* Test Item Value Reference Range Interpretation Comments B-TYPE NATRIURETIC PEPTIDE (test code = BNP) < 5.0 pg/mL 0-100 N BASIC METABOLIC [id number] 20:44:00* Test Item Value Reference Range Interpretation Comments SODIUM (test code = NA) 130 mmol/L 136-145 L POTASSIUM (test code = K) 3.1 mmol/L 3.5-5.1 L CHLORIDE (test code = CL) 93 mmol/L 101-109 L CARBON DIOXIDE (test code = CO2) 11.1 mmol/L 21-32 L ANION GAP (test code = GAP) 29 mmol/L 10-20 H GLUCOSE (test code = GLU) 612 mg/dL 74-106 HH Re sults called to [id number] by [facility].CB1 04/04/19 2044Critical results verified and read back by Nurse? Y BLOOD UREA NITROGEN (test code = BUN) 8 mg/dL 3-21 N GLOMERULAR FILTRATION RATE (test code = GFR) 51 mL/min >=60 Estimated GFR by using Modified MDRD formula.Chronic kidney disease is defined as either kidney damageor GFR <60 mL/min/1.73 m2 for >3 months. CREATININE (test code = CREAT) 1.60 mg/dL 0.55-1.3 H BUN/CREATININE RATIO (test code = BUN/CREA) 5.0 10-20 L CALCIUM (test code = CA) 9.1 mg/dL 8.4-10.2 N [id number] 20:44:00* Test Item Value Reference Range Interpretation Comments MAGNESIUM (test code = MAG) mg/dL 1.8-2.4 [id number] 20:44:00* Test Item Value Reference Range Interpretation Comments TROPONIN-I (test code = TROPI) ng/mL 0-0.045 CBC W/O [id number] 20:24:00* Test Item Value Reference Range Interpretation Comments WHITE BLOOD CELL (test code = WBC) 7.2 K/mm3 4.5-12.5 N RED BLOOD CELL (test code = RBC) 5.33 mill/mm3 4.0-5.8 N HEMOGLOBIN (test code = HGB) 16.5 gram/dL 13.0-17.5 N HEMATOCRIT (test code = HCT) 47.2 % 42.0-52.0 N MEAN CELL VOLUME (test code = MCV) 88.6 fL 80-98 N MEAN CELL HGB (test code = MCH) 31.0 picogram 27.0-33.0 N MEAN CELL HGB CONCETRATION (test code = MCHC) 35.0 gram/dL 33.0-36. 0 N RED CELL DISTRIBUTION WIDTH (test code = RDW) 14.3 % 11.6-16. 2 N RED CELL DISTRIBUTION WIDTH SD (test code = RDW-SD) 46.2 fL 37 .0-51.0 N PLATELET COUNT (test code = PLT) 195 K/mm3 150-450 N MEAN PLATELET VOLUME (test code = MPV) 12.4 fL 6.7-11.0 H
== END 2019-12-29 04:05 | disposition home or self-care (01) ==
LOC: FSED 03:08
DX: J30.9 Allergic rhinitis, unspecified (principal); R03.0 Elevated blood-pressure reading, without diagnosis of hypertension; E03.9 Hypothyroidism, unspecified; E11.9 Type 2 diabetes mellitus without complications
CPT/HCPCS: 96372; 99282; J1100